=== PATIENT | male | born 1950 | race African-American/Black ===

== ENCOUNTER 2025-03-28 19:18 | Emergency (ER) | payer SELFPAY ==
[~2025-03-28] VITALS: Ht 182.9 cm; Wt 91.0 kg
[2025-03-28 19:28] VITALS: O2SAT 98
[2025-03-28 21:05] VITALS: BP 130/73; PULSE 61; RESP 18; TEMP 36.8; O2SAT 99
== END 2025-03-28 21:11 | disposition home or self-care (01) ==
LOC: ER 19:18 → EDBD 19:18 → ER 21:11
DX: F03.90 Unspecified dementia, unspecified severity, without behavioral disturbance, psychotic disturbance, mood disturbance, and anxiety (principal); I10 Essential (primary) hypertension; Z00.8 Encounter for other general examination
CPT/HCPCS: 99283